=== PATIENT | male | born 1990 | race Caucasian/White ===

== ENCOUNTER 2016-09-17 14:38 | Inpatient (IN) ==
[2016-09-17] MEDS ORDERED: 0.9 % Sodium Chloride 1,000 ML IVC ONE (15:26)
[2016-09-17 16:15] LABS: Basophils % 0.9 %; Mean Corpuscular Hemoglobin 17.6 pg (28.0-33.3); Red Cell Distribution Width 16.2 % (11.5-14.5)
[2016-09-17 16:17] LABS: Basophils # 0.1 K/mcL (0.0-0.2); Eosinophils # 0.1 K/mcL (0.0-0.6); Eosinophils % 1.2 %; Hematocrit 23.8 % (37.5-50.1); Immature Granulocytes % 0.8 % (0-4); Lymphocytes # 2.3 K/mcL (0.6-4.6); Lymphocytes % 30.8 %; Mean Corpuscular HGB Conc 27.3 g/dL (31.6-35.5); Mean Corpuscular Volume 64.5 fL (83.0-100.0); Mean Platelet Volume 12.4 fL (9.4-12.4); Monocytes # 1.1 K/mcL (0.0-1.3); Monocytes % 14.9 %; Platelet Count 419 K/mcL (140-400); Red Blood Count 3.69 M/mcL (4.19-5.50); Segmented Neutrophils % 51.4 %
[2016-09-17 16:19] LABS: Bilirubin,Urine Negative (Negative); Blood,Urine Negative (Negative); Clarity,Urine Clear (Clear); Color,Urine Yellow (Yellow); Glucose,Urine (UA) Normal (Normal); Ketones,Urine Negative (Negative); Leukocyte Esterase,Urine Negative (Negative); Nitrite,Urine Negative (Negative); Protein,Urine Negative (Neg-Trace); Specific Gravity,Urine 1.016 (1.010-1.025); Urobilinogen,Urine Normal (Normal)
[2016-09-17 16:30] LABS: Alanine Aminotransferase 9 Units/L (0-55); Albumin 4.1 g/dL (3.5-5.0); Albumin/Globulin Ratio 0.9 (1.1-2.2); Alkaline Phosphatase 69 Units/L (38-126); Aspartate Amino Transferase 15 Units/L (5-34); BUN/Creatinine Ratio 17 (6-26); Bilirubin,Total 0.4 mg/dL (0.2-1.2); Blood Urea Nitrogen 15 mg/dL (8-26); Calcium 9.6 mg/dL (8.6-10.8); Carbon Dioxide 25 mEq/L (19-29); Chloride 103 mEq/L (98-109); Globulin 4.4 g/dL (2.4-3.5); Glucose 96 mg/dL (70-99); Osmolality,Calculated 285 (280-300); Potassium 3.6 mEq/L (3.5-4.5); Sodium 137 mEq/L (136-145); Total Protein 8.5 g/dL (6.0-8.3); eGFR For African Americans > 60 (> 60); eGFR For Non-African Americans > 60 (> 60)
[2016-09-17 16:42] LABS: Hemoglobin 6.5 g/dL (12.9-16.9); Neutrophils # 3.9 K/mcL (1.6-8.9)
[2016-09-17 16:49] LABS: Anisocytosis 1+ (Not Present); Hypochromasia Present (Not Present)
[2016-09-17 16:50] LABS: Platelet Estimate Normal (Normal); Poikilocytosis 1+ (Not Present)
--- NOTE | 2016-09-17 17:12 | Emergency Department Note ---
Disposition Clinical Impression: Symptomatic anemia GI bleed Qualifiers: GI bleed type/associated pathology: unspecified gastrointestinal hemorrhage type Qualified Code(s): K92.2 - Gastrointestinal hemorrhage, unspecified Disposition: Admitted As Inpatient Condition: Good General Adult HPI - General Chief complaint: ED Weakness Stated complaint: weakness Time Seen by Provider: 09/17/16 15:16 Source: patient Limitations: no limitations Nursing Notes Reviewed: Yes Vital Signs Reviewed: Yes - History of Present Illness HPI Narrative: Patient has a history of celiac disease. Patient went to urgent care for evaluation of fatigue and occasional difficulty swallowing. Patient states that the difficulty swallowing is intermittent and is not currently having. Overall he looks very pale and is mildly tachycardic. He states that he has not had any melanotic or bloody bowel movements. The patient eats whatever he wants despite his celiac. She used to get severe constipation with eating foods containing gluten however he is not currently experiencing these and has been enjoying a regular diet. Patient states that he just cannot get out and do the things that he would usually do. Did not tolerate activities he is normally capable of tolerating. Pain Scale: 0 - Related Data Home Medications Medication Instructions Recorded Confirmed No Known Home Drugs 09/17/16 09/17/16 Allergies Allergy/AdvReac Type Severity Reaction Status Date / Time No Known Allergies Allergy Verified 09/17/16 14:43 Review of Systems: CONSTITUTIONAL: Weakness and fatigue HEENT: Eyes: No visual changes. Ears, Nose, Throat: No hearing loss, difficulty talking or unable to swallow. SKIN: No rash or itching. CARDIOVASCULAR: No chest pain, chest pressure or chest discomfort. No palpitations or edema. RESPIRATORY: Decreased exertional capacity GASTROINTESTINAL: No anorexia, nausea, vomiting or diarrhea. No abdominal pain or blood. GENITOURINARY: No burning on urination or hematuria. NEUROLOGICAL: No headache, dizziness, syncope, paralysis, ataxia, numbness or tingling in the extremities. No change in bowel or bladder control. MUSCULOSKELETAL: No muscle pain, back pain, joint pain or stiffness. Past Medical History - Past Medical History Medical history: Reports: other Psychiatric history: Reports: no psych history - Social History Smoking Status: Never smoker Smokeless Tobacco Status: No Alcohol use: Reports: none Drug use: Reports: none Physical Exam General appearance: NAD, conversant Eyes: Pale conjunctiva HENT: Atraumatic; oropharynx clear with moist mucous membranes and no mucosal ulcerations Neck: Normal inspection; Trachea midline; FROM, supple Lungs: CTA, with normal respiratory effort and no intercostal retractions CV: RRR, no MRGs Abdomen: Soft, non-tender; no rebound or gaurding Stool guaiac positive Extremities: No peripheral edema or extremity lymphadenopathy Skin: Normal temperature; no rash, ulcers or lesions Psych: Appropriate mood and affect Neuro: alert and oriented to person, place and time - General Limitations: no limitations General appearance: alert, in no apparent distress Course - Consultations Consultation #1: Discussed with hospitalist. Patient with hemoglobin less than 7. Guaiac positive stool. No abdominal pain. Patient accepted for admission Vital Signs Temperature 98.6 F 09/17/16 14:39 Pulse Rate 117 09/17/16 14:39 Respiratory Rate 16 09/17/16 14:39 Blood Pressure 121/72 09/17/16 14:39 O2 Sat by Pulse Oximetry 100 09/17/16 14:39 Temperature 99.6 F 09/17/16 18:49 Pulse Rate 112 09/17/16 18:49 Respiratory Rate 16 09/17/16 18:49 Blood Pressure 116/59 09/17/16 18:49 O2 Sat by Pulse Oximetry 100 09/17/16 18:49 Oxygen Delivery Oxygen Delivery Room Air Medical Decision Making - Lab Data Result diagrams: 09/17/16 15:52 09/17/16 15:52 Lab Results 09/17/16 09/17/16 09/17/16 Range/Units 15:52 15:52 15:52 WBC 7.5 (4.3-11.1) K/mcL RBC 3.69 L (4.19-5.50) M/mcL Hgb 6.5 L (12.9-16.9) g/dL Hct 23.8 L (37.5-50.1) % MCV 64.5 L (83.0-100.0) fL MCH 17.6 L (28.0-33.3) pg MCHC 27.3 L (31.6-35.5) g/dL RDW 16.2 H (11.5-14.5) % Plt Count 419 H (140-400) K/mcL MPV 12.4 (9.4-12.4) fL Reticulocyte # (0.05-0.10) M/mcL Immature Gran % 0.8 (0-4) % Seg Neutrophils % 51.4 % Lymphocytes % 30.8 % Monocytes % 14.9 % Eosinophils % 1.2 % Basophils % 0.9 % Neutrophils # 3.9 (1.6-8.9) K/mcL Lymphocytes # 2.3 (0.6-4.6) K/mcL Monocytes # 1.1 (0.0-1.3) K/mcL Eosinophils # 0.1 (0.0-0.6) K/mcL Basophils # 0.1 (0.0-0.2) K/mcL Platelet Estimate Normal (Normal) Hypochromasia Present A (Not Present) Poikilocytosis 1+ A (Not Present) Anisocytosis 1+ A (Not Present) Percent Retic (1.6-2.8) % Immature Retic Fraction (11.0-38.0) % Retic Hgb Equivalent (28.61-36.33) pg Sodium 137 (136-145) mEq/L Potassium 3.6 (3.5-4.5) mEq/L Chloride 103 (98-109) mEq/L Carbon Dioxide 25 (19-29) mEq/L BUN 15 (8-26) mg/dL Creatinine 0.87 (0.72-1.25) mg/dL Est GFR ( Amer) > 60 (> 60) Est GFR (Non-Af Amer) > 60 (> 60) BUN/Creatinine Ratio 17 (6-26) Glucose 96 (70-99) mg/dL Calculated Osmolality 285 (280-300) Calcium 9.6 (8.6-10.8) mg/dL Iron 9 L (65-175) mcg/dL Ferritin 4 L (22-275) ng/ml Total Bilirubin 0.4 (0.2-1.2) mg/dL AST 15 (5-34) Units/L ALT 9 (0-55) Units/L Alkaline Phosphatase 69 (38-126) Units/L Lactate Dehydrogenase (159-327) Units/L Troponin I 0.00 (0-0.03) ng/mL Serum Total Protein 8.5 H (6.0-8.3) g/dL Albumin 4.1 (3.5-5.0) g/dL Globulin 4.4 H (2.4-3.5) g/dL Albumin/Globulin Ratio 0.9 L (1.1-2.2) Vitamin B12 (213-816) pg/mL Folate (7.0-31.4) ng/mL Urine Color (Yellow) Urine Clarity (Clear) Urine pH (5.0-8.0) pH Units Ur Specific [place] (1.010-1.025) Urine Protein (Neg-Trace) mg/dL Urine Glucose (UA) (Normal) mg/dL Urine Ketones (Negative) mg/dL Urine Blood (Negative) Urine Nitrite (Negative) Urine Bilirubin (Negative) Urine Urobilinogen (Normal) mg/dL Ur Leukocyte Esterase (Negative) Ur Culture Indicated? (NO) Blood Type Antibody Screen CYRIL, Poly Interpret Crossmatch 09/17/16 09/17/16 09/17/16 Range/Units 15:52 15:52 15:52 WBC (4.3-11.1) K/mcL RBC (4.19-5.50) M/mcL Hgb (12.9-16.9) g/dL Hct (37.5-50.1) % MCV (83.0-100.0) fL MCH (28.0-33.3) pg MCHC (31.6-35.5) g/dL RDW (11.5-14.5) % Plt Count (140-400) K/mcL MPV (9.4-12.4) fL Reticulocyte # 0.05 (0.05-0.10) M/mcL Immature Gran % (0-4) % Seg Neutrophils % % Lymphocytes % % Monocytes % % Eosinophils % % Basophils % % Neutrophils # (1.6-8.9) K/mcL Lymphocytes # (0.6-4.6) K/mcL Monocytes # (0.0-1.3) K/mcL Eosinophils # (0.0-0.6) K/mcL Basophils # (0.0-0.2) K/mcL Platelet Estimate (Normal) Hypochromasia (Not Present) Poikilocytosis (Not Present) Anisocytosis (Not Present) Percent Retic 1.4 L (1.6-2.8) % Immature Retic Fraction 16.8 (11.0-38.0) % Retic Hgb Equivalent 14.5 L (28.61-36.33) pg Sodium (136-145) mEq/L Potassium (3.5-4.5) mEq/L Chloride (98-109) mEq/L Carbon Dioxide (19-29) mEq/L BUN (8-26) mg/dL Creatinine (0.72-1.25) mg/dL Est GFR ( Amer) (> 60) Est GFR (Non-Af Amer) (> 60) BUN/Creatinine Ratio (6-26) Glucose (70-99) mg/dL Calculated Osmolality (280-300) Calcium (8.6-10.8) mg/dL Iron (65-175) mcg/dL Ferritin (22-275) ng/ml Total Bilirubin (0.2-1.2) mg/dL AST (5-34) Units/L ALT (0-55) Units/L Alkaline Phosphatase (38-126) Units/L Lactate Dehydrogenase 408 H (159-327) Units/L Troponin I (0-0.03) ng/mL Serum Total Protein (6.0-8.3) g/dL Albumin (3.5-5.0) g/dL Globulin (2.4-3.5) g/dL Albumin/Globulin Ratio (1.1-2.2) Vitamin B12 496 (213-816) pg/mL Folate 5.7 L (7.0-31.4) ng/mL Urine Color (Yellow) Urine Clarity (Clear) Urine pH (5.0-8.0) pH Units Ur Specific [place] (1.010-1.025) Urine Protein (Neg-Trace) mg/dL Urine Glucose (UA) (Normal) mg/dL Urine Ketones (Negative) mg/dL Urine Blood (Negative) Urine Nitrite (Negative) Urine Bilirubin (Negative) Urine Urobilinogen (Normal) mg/dL Ur Leukocyte Esterase (Negative) Ur Culture Indicated? (NO) Blood Type Antibody Screen CYRIL, Poly Interpret Crossmatch 09/17/16 09/17/16 09/17/16 Range/Units 15:56 17:24 17:24 WBC (4.3-11.1) K/mcL RBC (4.19-5.50) M/mcL Hgb (12.9-16.9) g/dL Hct (37.5-50.1) % MCV (83.0-100.0) fL MCH (28.0-33.3) pg MCHC (31.6-35.5) g/dL RDW (11.5-14.5) % Plt Count (140-400) K/mcL MPV (9.4-12.4) fL Reticulocyte # (0.05-0.10) M/mcL Immature Gran % (0-4) % Seg Neutrophils % % Lymphocytes % % Monocytes % % Eosinophils % % Basophils % % Neutrophils # (1.6-8.9) K/mcL Lymphocytes # (0.6-4.6) K/mcL Monocytes # (0.0-1.3) K/mcL Eosinophils # (0.0-0.6) K/mcL Basophils # (0.0-0.2) K/mcL Platelet Estimate (Normal) Hypochromasia (Not Present) Poikilocytosis (Not Present) Anisocytosis (Not Present) Percent Retic (1.6-2.8) % Immature Retic Fraction (11.0-38.0) % Retic Hgb Equivalent (28.61-36.33) pg Sodium (136-145) mEq/L Potassium (3.5-4.5) mEq/L Chloride (98-109) mEq/L Carbon Dioxide (19-29) mEq/L BUN (8-26) mg/dL Creatinine (0.72-1.25) mg/dL Est GFR ( Amer) (> 60) Est GFR (Non-Af Amer) (> 60) BUN/Creatinine Ratio (6-26) Glucose (70-99) mg/dL Calculated Osmolality (280-300) Calcium (8.6-10.8) mg/dL Iron (65-175) mcg/dL Ferritin (22-275) ng/ml Total Bilirubin (0.2-1.2) mg/dL AST (5-34) Units/L ALT (0-55) Units/L Alkaline Phosphatase (38-126) Units/L Lactate Dehydrogenase (159-327) Units/L Troponin I (0-0.03) ng/mL Serum Total Protein (6.0-8.3) g/dL Albumin (3.5-5.0) g/dL Globulin (2.4-3.5) g/dL Albumin/Globulin Ratio (1.1-2.2) Vitamin B12 (213-816) pg/mL Folate (7.0-31.4) ng/mL Urine Color Yellow (Yellow) Urine Clarity Clear (Clear) Urine pH 6.0 (5.0-8.0) pH Units Ur Specific [place] 1.016 (1.010-1.025) Urine Protein Negative (Neg-Trace) mg/dL Urine Glucose (UA) Normal (Normal) mg/dL Urine Ketones Negative (Negative) mg/dL Urine Blood Negative (Negative) Urine Nitrite Negative (Negative) Urine Bilirubin Negative (Negative) Urine Urobilinogen Normal (Normal) mg/dL Ur Leukocyte Esterase Negative (Negative) Ur Culture Indicated? NO (NO) Blood Type A POSITIVE Antibody Screen NEGATIVE CYRIL, Poly Interpret NEG Crossmatch See Detail Attestation Statement - Attestation Attestation: I, Ozzie Osei, examined this patient and my medical decision-making was reviewed with the E LEARNING MANAGER/PA/Advanced Practice Nurse/Resident Physician. I agree with the documented findings, disposition and treatment plan as described except to the extent set forth below. 26 yo male presents with weakness and fatigue. Pt states he has had difficulty swallowing food and fluids but is still tolerating PO intake. Tolerating saliva in ED, drinking fluid prior to arrival. Pt has history of poorly controlled celiac disease. Pt is pale on exam. Denies abdominal pain. Denies hematochezia or melena. Pt hemoglobin 6.5, Rectal exam grossly bloody on exam. Abdomen nontender to palpation. Pt to be admitted for blood transfusion and likely colonoscopy.
[2016-09-17] MEDS ORDERED: Acetaminophen 325 MG TABLET PO PRN (19:42)
--- NOTE | 2016-09-17 19:47 | Internal Med History&Physical ---
Date of Encounter: 09/17/16 Time of Encounter: 19:15 Assessment and Plan (1) Symptomatic anemia Current visit: Yes Status: Acute - Microcytic hypochromic anemia with Hgb 6.5 and symptoms including generalized weakness, paleness and tachycardia. - Likely iron deficiency anemia for unclear duration (last Hgb 12.1 on 09/26/15) , which can be acute (from GI bleed) vs. chronic (malabsorption associated with celiac disease) - Also concern of Sosa Matthew syndrome given reported dysphagia. - Will check iron panel, ferritin, LDH, reticulocyte count, direct demetri, vitamin B12, foliac acid, PT/INR, PTT. - Will type and cross and give one unit of pRBC. - Closely monitor with H&H. (2) GI bleed Current visit: Yes Status: Acute - Concern of acute blood loss anemia with Hgb 6.5 and positive stool occult test. - Patient needs at least two 18-gauge+ IV access. - Will start IV PPI BID. - Will consult GI and appreciate further evaluation with possible scope. - NPO for now. Qualifiers: GI bleed type/associated pathology: unspecified gastrointestinal hemorrhage type Qualified Code(s): K92.2 - Gastrointestinal hemorrhage, unspecified (3) Dysphagia Current visit: Yes Status: Acute - One week and half history of intermittent dysphagia to solid food. - Concern of Sosa Matthew syndrome given likely iron deficiency anemia. - Will consult GI and appreciate further evaluation with possible scope. - NPO for now. Qualifiers: Dysphagia type: unspecified Qualified Code(s): R13.10 - Dysphagia, unspecified (4) History of celiac disease Current visit: Yes Status: Chronic - Known history of celiac disease. - Per patient, that seems to improve from the past as he can tolerate regular diet prior to admission. (5) DVT prophylaxis Current visit: Yes Status: Acute - Given concern of GI bleed, will use calf pump as mechanical DVT prophylaxis. Internal Medicine - H&P: HPI Chief complaint: Generalized weakness Admitted From: Emergency Dept Plans for Post Hospital Care: Home History of present illness: Mr. Torres is a 26 year old male with PMH of celiac disease. Patient presented with complaint of generalized weakness and intermittent dysphagia for one week and half. The dysphagia is most for solid food as he has no problem to drink. Other associated symptom include pale and 6-lb weigh loss. Patient never had these symptoms before. Patient reports normal bowel movement with loosen brown stool 2-3 times per week and no hematochezia or melena. Patient denies nausea, vomiting, acid reflex, heartburn, abdominal pain, chest pain, shortnes of breath , lightheadedness, syncope, fever, chills, easily bleeding/bruise, hematuria, dysuria. Patient denies recent trauma or injury. Patient is not on any home medication except occasional OTC Tylenol use. Patient denies NSAIDs or steroid use. Patient states he used to have problem with gluten but not anymore as he can take regular diet without significant problem. Past Med Surg Social Fam HX - Past Medical History Medical history: other (Celiac disease) Psychiatric history: no psych history - Past Surgical History Surgical History: cholecystectomy - Social History Smoking Status: Never smoker Smokeless Tobacco Status: No Alcohol use: none Drug use: none - Family History Grandfather Hx Family Endocrine Disorder: Yes (DM) Internal Medicine - H&P: Meds No Known Home Drugs 09/17/16 [History] Allergies No Known Allergies Allergy (Verified 09/17/16 14:43) All Systems PM: A 10-system review of systems was performed and is negative for pertinent findings except as documented above in the HPI. - Constitutional Constitutional: weight loss, no anorexia, no chills, no fever(s) - EENT Eyes: no change in vision Ears: no decreased hearing Nose, mouth and throat: dysphagia - Cardiovascular Cardiovascular ROS IM: no chest pain, no edema, no lightheadedness, no syncope - Respiratory Respiratory: no cough, no dyspnea, no hemoptysis - Gastrointestinal Gastrointestinal: as per HPI, no abdominal pain, no constipation, no hematochezia, no melena, no nausea, no vomiting - Genitourinary Genitourinary ROS male: no difficulty urinating, no dysuria, no hematuria - Hematologic/Lymphatic Hematologic/Lymphatic: no easy bleeding, no easy bruising - Constitutional Vitals: Temp Pulse Resp BP Pulse Ox 99.6 F 112 16 116/59 100 09/17/16 18:49 09/17/16 18:49 09/17/16 18:49 09/17/16 18:49 09/17/16 18:49 General appearance: Present: cooperative, A&O X 3, no acute distress, answers questions appropriately - Head Head exam: Present: atraumatic, normocephalic - Eye Eye exam: Present: EOMI, PERRL, conjuntiva pink, sclera anicteric - Neck Neck exam general surgery: Present: supple, trachea midline. Absent: lymphadenopathy - Respiratory Respiratory exam: Present: CTAB. Absent: accessory muscle use, rales, rhonchi, wheezes - Cardiovascular Cardiovascular exam: Present: +S1, +S2, tachycardia. Absent: diastolic murmur, gallop, rubs, systolic murmur - GI/Abdominal GI/Abdominal exam: Present: normal bowel sounds, soft, no peritoneal signs. Absent: distended, tenderness - Extremities Exam Extremities exam: Present: warm, radial pulses palpable and symetrical. Absent : calf tenderness, cyanotic, pedal edema - Neurological Exam Neurological exam: Present: CN II-XII intact, oriented X3, no focal deficits. Absent: pronater drift, facial droop, speech deficit - Skin Skin exam: Present: dry, intact, warm Internal Med - H&P Results - Labs CBC & Chem 7: 09/17/16 15:52 09/17/16 15:52
[2016-09-17 20:13] LABS: Iron 9 mcg/dL (65-175)
[2016-09-17 20:34] LABS: Ferritin 4 ng/ml (22-275)
[2016-09-17 20:35] LABS: Immature Reticulocyte % 16.8 % (11.0-38.0); Retculocyte # 0.05 M/mcL (0.05-0.10); Reticulocyte % 1.4 % (1.6-2.8)
[2016-09-17] MEDS ORDERED: 0.9 % Sodium Chloride 250 ML ONE (20:36)
[2016-09-17 20:47] LABS: % Iron Saturation 3 % (20-55); Iron 10 mcg/dL (65-175); Transferrin 271 mg/dL (174-364)
[2016-09-17 20:50] LABS: Folate 5.7 ng/mL (7.0-31.4)
[2016-09-17] MEDS: Pantoprazole 40 MG VIAL IVP SCH (20:54)
[2016-09-17 21:03] LABS: INR 1.4
[2016-09-17 21:06] LABS: Activated Partial Thrombo Time 25.9 Seconds (26.0-36.0)
[2016-09-17 21:07] LABS: Ferritin 4 ng/ml (22-275)
--- NOTE | 2016-09-17 21:39 | Event Note ---
Date of Encounter: 09/17/16 Time of Encounter: 21:35 Patient seen and examined with medical affairs manager. Briefly 26-year-old male presents with symptomatic anemia. Patient has history of celiac disease. He has micro Cytic hypo chronic anemia with elevated RDW suggestive of iron deficiency anemia which can be explained by celiac disease. He has also been complaining of dysphagia which may be related to Sosa Matthew syndrome in relation to his iron deficiency anemia. Will check iron studies and transfuse one unit of blood because of symptomatic anemia. He denies any hematemesis, melena or hematochezia. No nonsteroidal anti-inflammatory drug use. No antiplatelet or anticoagulant medications. Will also consult gastroenterology for EGD colonoscopy and start an IV photonics for now.
[2016-09-18 01:26] LABS: Hematocrit 22.8 % (37.5-50.1); Hemoglobin 6.6 g/dL (12.9-16.9)
[2016-09-18] MEDS ORDERED: 0.9 % Sodium Chloride 250 ML ONE (04:12)
[2016-09-18] MEDS: Pantoprazole 40 MG VIAL IVP SCH ×2 (07:27→19:50)
[2016-09-18 09:13] LABS: Hematocrit 28.2 % (37.5-50.1); Hemoglobin 8.4 g/dL (12.9-16.9); Mean Corpuscular HGB Conc 29.8 g/dL (31.6-35.5); Mean Corpuscular Hemoglobin 20.3 pg (28.0-33.3); Mean Corpuscular Volume 68.3 fL (83.0-100.0); Mean Platelet Volume 12.5 fL (9.4-12.4); Platelet Count 363 K/mcL (140-400); Red Blood Count 4.13 M/mcL (4.19-5.50); Red Cell Distribution Width 19.7 % (11.5-14.5)
--- NOTE | 2016-09-18 11:19 | Internal Med Progress Note ---
<Howard Taylor - Last Filed: 09/18/16 13:07> Date of Encounter: 09/18/16 Time of Encounter: 11:11 - Assessment and plan (1) Symptomatic anemia Current Visit: Yes Status: Acute Assessment and plan: hgb 6.6 today after receiving 2 units of PRBC yesterday. on admission hgb 6.5. MCV 64.5, MCV/RBC 17.48, Fe 10, Ferritin 4. Fe deficiency microcytic anemia secondary most likely due to GI pathology. dysphagia possible due to regan libia secondary to fe deficiency anemia. - Started on IV Iron Dextran 100mg/day for 10 days + test dose. - GI consulted. (2) GI bleed Current Visit: Yes Status: Acute Assessment and plan: GI bleed vs celiac vs UC/Crohns. Positive stool occult, and current anemia. Previous hx of celiac. - GI consult ordered for evaluation. - continue IV PPI. Qualifiers: GI bleed type/associated pathology: unspecified gastrointestinal hemorrhage type Qualified Code(s): K92.2 - Gastrointestinal hemorrhage, unspecified (3) History of celiac disease Current Visit: Yes Status: Chronic Assessment and plan: has never had a scope but patient reports positive blood test a the age of 13. per patient normal diet is now tolerable. GI following. (4) Dysphagia Current Visit: Yes Status: Acute Assessment and plan: possible regan libia syndrome secondary to iron deficiency anemia - continue NPO Qualifiers: Dysphagia type: unspecified Qualified Code(s): R13.10 - Dysphagia, unspecified (5) DVT prophylaxis Current Visit: Yes Status: Acute Assessment and plan: due to GI bleed concerns. continue mechanical DVT prophylaxis. - Subjective Interval history: 26 yo m admit day 1. hospitalized due to 1.5 weeks of general weakness and intermittent dsphagia with unclear history of celiac disease. Ass. parents mention that patient has been pale recently, and 6 lb weight loss during the last 1.5 weeks. denies n/v/acidreflux/abd pain/CP/sob/lightheadness/f/c/ hematuria/dysuria/pica/hematochezia/melena/hematemesis. parents report pt has had rotting teeth since his baby teeth. today he has no new complaints. - Constitutional Vitals: Temp Pulse Resp BP Pulse Ox 98.3 F 98 16 104/68 99 08/08/17 07:07 09/18/16 07:07 09/18/16 07:07 09/18/16 07:07 09/18/16 07:34 General appearance: Present: cooperative, A&O X 3, no acute distress, answers questions appropriately - Head Head exam: Present: atraumatic, normocephalic Additional comments: very poor dentation. left side of face near cheek bone has two rashes - Respiratory Respiratory exam: Present: CTAB. Absent: accessory muscle use, rales, rhonchi, wheezes - Cardiovascular Cardiovascular exam: Present: RRR, +S1, +S2. Absent: diastolic murmur, gallop, rubs, systolic murmur - Expanded Lower Extremities Exam Lower Leg exam: Present: laceration (right anterior lower leg - 3 abrasions.) - Neurological Exam Neurological exam: Present: alert, oriented X3 Internal Medicine: Result - Labs CBC & Chem 7: 09/18/16 08:41 09/17/16 15:52 Labs: Short CBC 09/18/16 Range/Units 08:41 WBC 6.3 (4.3-11.1) K/mcL Hgb 8.4 L D (12.9-16.9) g/dL Hct 28.2 L (37.5-50.1) % Plt Count 363 (140-400) K/mcL - ABG Interpretation ABG results: PT/INR, D-dimer PT 15.0 Seconds (9.4-12.1) H 09/17/16 20:14 Consult Discharge Plan - Plan Referrals: NONE,PCP [Primary Care Provider] - <Ajit Negro T - Last Filed: 09/18/16 16:00> Date of Encounter: 09/18/16 - Constitutional Vitals: Temp Pulse Resp BP Pulse Ox 98.9 F 87 16 104/68 97 09/18/16 11:27 09/18/16 11:27 09/18/16 11:27 09/18/16 11:27 09/18/16 11:27 Internal Medicine: Result - Labs CBC & Chem 7: 09/18/16 14:20 09/17/16 15:52 Labs: Short CBC 09/18/16 09/18/16 Range/Units 08:41 14:20 WBC 6.3 (4.3-11.1) K/mcL Hgb 8.4 L D 8.1 L (12.9-16.9) g/dL Hct 28.2 L 27.4 L (37.5-50.1) % Plt Count 363 (140-400) K/mcL - ABG Interpretation ABG results: PT/INR, D-dimer PT 15.0 Seconds (9.4-12.1) H 09/17/16 20:14 - Attending Attestation I examined this patient and my medical decision-making was reviewed with the Resident Physician on 09/18/16. I agree with the documented findings, disposition and treatment plan as described except to the extent set forth below. 26 M with Celiac disease, chronic gingivitis, Iron deficicney anemia being managed for acute on chronic anemia, suspected GI loss, dysphagia, He is seen at bedside, no new complains Physical exam: Erythematous lesion on the whitten, poor oral hygeine, multiple lost teeth, CTAB, abdomen is not tender Labs and Imaging reviewed: Folate and Iron deficient Plan: GI eval, agree with Iron IV, Replace Folate, Check Vit D level, continue PPI Rest of details as in resident physician's documentation
[2016-09-18] MEDS: Iron Dextran Complex 100 MG in 0.9 % Sodium Chloride 500 ML IVPB SCH (11:23)
--- NOTE | 2016-09-18 12:04 | Gastroenterology Consult Note ---
<DevriesAyan alvarez Grecia - Last Filed: 09/18/16 12:01> Date of Encounter: 09/18/16 Time of Encounter: 11:00 - Assessment and plan (1) Dysphagia Current Visit: Yes Status: Acute Assessment and plan: Plan for EGD with possible dilation today to r/o structural causes such as stricture, tumor, etc vs esophageal motility disorder. Qualifiers: Dysphagia type: unspecified Qualified Code(s): R13.10 - Dysphagia, unspecified (2) Symptomatic anemia Current Visit: Yes Status: Acute Assessment and plan: No melena or hematochezia. Hgb 6.5 on admission. Continue to monitor CBC and transfuse PRBC as needed. Plan for EGD today to r/o esophagitis, gastritis, duodenitis, PUD, MW tear, or AVM. (3) GI bleed Current Visit: Yes Status: Acute Assessment and plan: No active GI bleeding noted as pt denies melena or hematochezia, but FOBT was positive. Qualifiers: GI bleed type/associated pathology: unspecified gastrointestinal hemorrhage type Qualified Code(s): K92.2 - Gastrointestinal hemorrhage, unspecified (4) History of celiac disease Current Visit: Yes Status: Chronic - Time Spent With Patient Total time spent is greater than 50% in coordination of care (as documented) at patient's floor/unit and/or counseling patient: GI History of Present Illness - Data of Consult Patient: new to practice Consult date: 09/18/16 Requesting Physician: Sukhwinder Plaza DO - Consult Narrative Reason for consult: hx Celiac Disease, anemia, dysphagia History of present illness: Mr. Torres is a 26 year old male with PMHx of Celiac disease who presented to the ED with c/o generalized weakness and intermittent dysphagia for 1-2 weeks. The dysphagia is with solid food, he has no problems with drinking. He is having normal BM, no melena or hematochezia. He denies fever, chills, chest pain , SOB, abdominal pain, nausea, vomiting, or hematemesis. On admission his Hgb was 6.5 with MCV 64.5, iron 10, ferritin 4, and FOBT was positive. Procedures: None NSAIDs: None Anticoagulation: None Past Med Surg Social Fam HX - Past Medical History Medical history: other Psychiatric history: no psych history - Past Surgical History Surgical History: cholecystectomy - Social History Smoking Status: Never smoker Smokeless Tobacco Status: No Alcohol use: none Drug use: none - Family History Grandfather Hx Family Endocrine Disorder: Yes (DM) - Gastrointestinal Gastrointestinal: Present: as per HPI - Constitutional Constitutional: as per HPI - EENT Eyes: as per HPI Ears: Present: as per HPI Nose, mouth and throat: Present: as per HPI - Cardiovascular Cardiovascular ROS: Present: as per HPI - Respiratory Respiratory IM: Present: as per HPI - Genitourinary Genitourinary: Absent: change in color, Urinary frequency - Neurological ROS Neurological GI: Present: as per HPI - Hematologic/Lymphatic Hematologic/Lymphatic pediatric: Present: as per HPI - Musculoskeletal Musculoskeletal ROS GI: Present: as per HPI - Integumentary Integumentary GI: Present: as per HPI - Psychiatric ROS Psychiatric GI: Present: as per HPI - Endocrine Endocrine IM: Present: as per HPI - Constitutional Vitals: Temp Pulse Resp BP Pulse Ox 98.9 F 87 16 104/68 97 09/18/16 11:27 09/18/16 11:27 09/18/16 11:27 09/18/16 11:27 09/18/16 11:27 General appearance: Present: cooperative, A&O X 3, no acute distress, answers questions appropriately - Head Head exam: Present: atraumatic, normocephalic - Eye Eye exam: Present: normal appearance, sclera anicteric - ENT ENT exam: Present: mucous membranes dry - Neck Neck exam general surgery: Present: normal inspection, trachea midline - Respiratory Respiratory exam: Present: CTAB. Absent: rales, rhonchi - Cardiovascular Cardiovascular exam: Present: RRR, +S1, +S2 - GI/Abdominal GI/Abdominal exam: Present: normal bowel sounds, soft, no peritoneal signs. Absent: distended, firm, guarding, tenderness - Rectal Rectal exam: Present: deferred - Extremities Exam Extremities exam: Present: warm - Neurological Exam Neurological exam: Present: no focal deficits - Psychiatric Psychiatric exam: Present: normal affect, normal mood - Skin Skin exam: Present: dry, intact, normal color, warm Results - Labs CBC & Chem 7: 09/18/16 08:41 09/17/16 15:52 Labs: Last Result Calcium 9.6 mg/dL (8.6-10.8) 09/17/16 15:52 Iron 10 mcg/dL (65-175) L 09/17/16 20:14 % Saturation 3 % (20-55) L 09/17/16 20:14 Transferrin 271 mg/dL (174-364) 09/17/16 20:14 Ferritin 4 ng/ml (22-275) L 09/17/16 20:14 Troponin I 0.00 ng/mL (0-0.03) 09/17/16 15:52 Vitamin B12 496 pg/mL (213-816) 09/17/16 15:52 Folate 5.7 ng/mL (7.0-31.4) L 09/17/16 15:52 Stool Occult Blood Positive (Negative) A 09/17/16 Unknown Entire Visit Hgb 8.4 g/dL (12.9-16.9) L D 09/18/16 08:41 Hct 28.2 % (37.5-50.1) L 09/18/16 08:41 PT 15.0 Seconds (9.4-12.1) H 09/17/16 20:14 Ferritin 4 ng/ml (22-275) L 09/17/16 20:14 Total Bilirubin 0.4 mg/dL (0.2-1.2) 09/17/16 15:52 AST 15 Units/L (5-34) 09/17/16 15:52 ALT 9 Units/L (0-55) 09/17/16 15:52 Folate 5.7 ng/mL (7.0-31.4) L 09/17/16 15:52 - ABG ABG results: PT/INR, D-dimer PT 15.0 Seconds (9.4-12.1) H 09/17/16 20:14 Consult Discharge Plan - Plan Referrals: NONE,PCP [Primary Care Provider] - <Naga Anderson - Last Filed: 09/18/16 17:33> Date of Encounter: 09/18/16 Time of Encounter: 17:00 - Time Spent With Patient Total time spent is greater than 50% in coordination of care (as documented) at patient's floor/unit and/or counseling patient: GI History of Present Illness - Data of Consult Requesting Physician: Sukhwinder Plaza DO - Consult Narrative History of present illness: Mr. Torres is a 26 year old male - Constitutional Vitals: Temp Pulse Resp BP Pulse Ox 99.7 F H 107 14 110/59 99 09/18/16 17:28 09/18/16 17:28 09/18/16 17:28 09/18/16 17:28 09/18/16 17:28 Results - Labs CBC & Chem 7: 09/18/16 14:20 09/17/16 15:52 Labs: Last Result Calcium 9.6 mg/dL (8.6-10.8) 09/17/16 15:52 Iron 10 mcg/dL (65-175) L 09/17/16 20:14 % Saturation 3 % (20-55) L 09/17/16 20:14 Transferrin 271 mg/dL (174-364) 09/17/16 20:14 Ferritin 4 ng/ml (22-275) L 09/17/16 20:14 Troponin I 0.00 ng/mL (0-0.03) 09/17/16 15:52 Vitamin B12 496 pg/mL (213-816) 09/17/16 15:52 Folate 5.7 ng/mL (7.0-31.4) L 09/17/16 15:52 Stool Occult Blood Positive (Negative) A 09/17/16 Unknown Entire Visit Hgb 8.1 g/dL (12.9-16.9) L 09/18/16 14:20 Hct 27.4 % (37.5-50.1) L 09/18/16 14:20 PT 15.0 Seconds (9.4-12.1) H 09/17/16 20:14 Ferritin 4 ng/ml (22-275) L 09/17/16 20:14 Total Bilirubin 0.4 mg/dL (0.2-1.2) 09/17/16 15:52 AST 15 Units/L (5-34) 09/17/16 15:52 ALT 9 Units/L (0-55) 09/17/16 15:52 Folate 5.7 ng/mL (7.0-31.4) L 09/17/16 15:52 - ABG ABG results: PT/INR, D-dimer PT 15.0 Seconds (9.4-12.1) H 09/17/16 20:14 - Attending Attestation I examined this patient and my medical decision-making was reviewed with the Resident Physician. I agree with the documented findings, disposition and treatment plan as described except to the extent set forth below. Patient with iron deficiency anemia most probably due to his underlying history of celiac disease. Denies any bloody bowel movement. Does has dysphagia. We will do an EGD for now. No need for colonoscopy at this point. Patient will need follow up on his iron panel along with CBC periodically and as needed IV iron therapy on as an outpatient basis
--- NOTE | 2016-09-18 12:35 | Electrocardiograph Report ---
[place] [id number] Test Date: 2016-09-17 Pat Name: Steve Torres Department: 104 Room: [facility] Gender: M [employer] Founder: : 1990 Requested By: Reyes Dwyer Order Number: [id number] Reading MD: Blanca Doan Measurements Intervals [place] Rate: 117 P: 74 W[place]: 140 QRS: 65 QRSD: 96 T: 57 QT: 326 QTc: 395 Interpretive Statements SINUS TACHYCARDIA ABNORMAL RHYTHM ECG Electronically Signed On 09-18-2016 12:33:49 EDT by Blanca Doan
[2016-09-18 14:38] LABS: Hematocrit 27.4 % (37.5-50.1); Hemoglobin 8.1 g/dL (12.9-16.9)
[2016-09-18] MEDS: 0.9 % Sodium Chloride 1,000 ML IVC SCH (14:55)
[2016-09-18] MEDS ORDERED: *HR* FentaNYL (PF) 100 MCG/2 ML VIAL ONE (16:40)
[2016-09-18] MEDS ORDERED: *HR* Midazolam HCl 5 MG/5 ML VIAL IVP ONE (16:40)
[2016-09-18] MEDS ORDERED: *HR* Promethazine 25 MG/ML VIAL ONE (16:41)
[2016-09-18] MEDS ORDERED: *HR* FentaNYL (PF) 100 MCG/2 ML VIAL IVP PRN (17:25)
[2016-09-18] MEDS ORDERED: Tetracaine/Benzocaine/Butamben 200MG/SPRAY (100SPY/BOT) MM ONE (17:25)
[2016-09-18] MEDS ORDERED: *HR* Midazolam HCl 5 MG/5 ML VIAL IVP PRN (17:25)
[2016-09-18 20:27] LABS: Hematocrit 32.1 % (37.5-50.1)
[2016-09-19] MEDS: 0.9 % Sodium Chloride 1,000 ML IVC SCH (03:36)
[2016-09-19 05:51] LABS: BUN/Creatinine Ratio 13 (6-26); Blood Urea Nitrogen 10 mg/dL (8-26); Calcium 8.5 mg/dL (8.6-10.8); Carbon Dioxide 23 mEq/L (19-29); Chloride 109 mEq/L (98-109); Glucose 93 mg/dL (70-99); Osmolality,Calculated 285 (280-300); Potassium 3.6 mEq/L (3.5-4.5); Sodium 138 mEq/L (136-145); eGFR For African Americans > 60 (> 60); eGFR For Non-African Americans > 60 (> 60)
[2016-09-19 05:59] LABS: Basophils # 0.1 K/mcL (0.0-0.2); Eosinophils # 0.1 K/mcL (0.0-0.6); Eosinophils % 1.8 %; Hematocrit 26.5 % (37.5-50.1); Hemoglobin 7.8 g/dL (12.9-16.9); Immature Granulocytes % 1.4 % (0-4); Immature Platelets 6.3 % (1.1-6.1); Mean Corpuscular HGB Conc 29.4 g/dL (31.6-35.5); Mean Corpuscular Volume 67.9 fL (83.0-100.0); Mean Platelet Volume 11.9 fL (9.4-12.4); Monocytes # 1.3 K/mcL (0.0-1.3); Monocytes % 17.5 %; Neutrophils # 3.7 K/mcL (1.6-8.9); Platelet Count 285 K/mcL (140-400); Red Cell Distribution Width 19.3 % (11.5-14.5); Segmented Neutrophils % 50.3 %
[2016-09-19 07:12] LABS: Anisocytosis 1+ (Not Present); Hypochromasia Present (Not Present); Microcytosis Present (Not Present); Poikilocytosis 1+ (Not Present)
[2016-09-19 07:13] LABS: Ovalocytes 1+ (Not Present); Platelet Estimate Normal (Normal); Tear Drop Cells 1+ (Not Present)
[2016-09-19] MEDS: Pantoprazole 40 MG VIAL IVP SCH (08:17)
[2016-09-19] MEDS: Iron Dextran Complex 100 MG in 0.9 % Sodium Chloride 500 ML IVPB SCH (08:17)
--- NOTE | 2016-09-19 09:25 | Internal Med Progress Note ---
<Howard Taylor - Last Filed: 09/19/16 13:43> Date of Encounter: 09/19/16 Time of Encounter: 09:19 - Assessment and plan (1) Symptomatic anemia Current Visit: Yes Status: Acute Assessment and plan: hgb 7.8 today after receiving 2 units of PRBC yesterday. on admission hgb 6.5. MCV 64.5, MCV/RBC 17.48, Fe 10, Ferritin 4. Fe deficiency microcytic anemia secondary most likely due to GI pathology. dysphagia possible due to regan libia secondary to fe deficiency anemia. - continue IV Iron Dextran 100mg/day for 10 days. - Duodenal biopsy results pending. - blood smear pending - heme consulted (2) GI bleed Current Visit: Yes Status: Acute Assessment and plan: GI bleed vs celiac vs UC/Crohns. Positive stool occult, and current anemia. Previous hx of celiac. - continue IV PPI. Qualifiers: GI bleed type/associated pathology: unspecified gastrointestinal hemorrhage type Qualified Code(s): K92.2 - Gastrointestinal hemorrhage, unspecified (3) History of celiac disease Current Visit: Yes Status: Chronic Assessment and plan: has never had a scope but patient reports positive blood test a the age of 13. per patient normal diet is now tolerable. GI following. continue PPI for now. (4) Dysphagia Current Visit: Yes Status: Acute Assessment and plan: possible regan libia syndrome secondary to iron deficiency anemia - no complaints of dysphagia since admission - continue NPO Qualifiers: Dysphagia type: unspecified Qualified Code(s): R13.10 - Dysphagia, unspecified (5) DVT prophylaxis Current Visit: Yes Status: Acute Assessment and plan: due to GI bleed concerns. continue mechanical DVT prophylaxis. - Subjective Interval history: 26 yo m admit day 2. hospitalized due to 1.5 weeks of general weakness and intermittent dsphagia with unclear history of celiac disease. Ass. parents mention that patient has been pale recently, and 6 lb weight loss during the last 1.5 weeks. denies n/v/acidreflux/abd pain/CP/sob/lightheadness/f/c/ hematuria/dysuria/pica/hematochezia/melena/hematemesis. parents report pt has had rotting teeth since his baby teeth. today he has no new complaints. he did not have issues with swallowing overnight. he did report having a more watery stool. denies nausea, vomiting, abdominal pain, f/c. - Constitutional Vitals: Temp Pulse Resp BP Pulse Ox 98.7 F 88 16 115/68 98 09/19/16 07:27 09/19/16 07:27 09/19/16 07:27 09/19/16 07:27 09/19/16 08:24 General appearance: Present: cooperative, A&O X 3, no acute distress, answers questions appropriately - Head Head exam: Present: atraumatic, normocephalic - Respiratory Respiratory exam: Present: CTAB. Absent: accessory muscle use, rales, rhonchi, wheezes - Cardiovascular Cardiovascular exam: Present: RRR, +S1, +S2. Absent: diastolic murmur, gallop, rubs, systolic murmur - GI/Abdominal GI/Abdominal exam: Present: normal bowel sounds, soft, no peritoneal signs. Absent: distended, tenderness Internal Medicine: Result - Labs CBC & Chem 7: 09/19/16 05:20 09/19/16 05:20 Labs: Short CBC 09/18/16 09/18/16 09/19/16 Range/Units 14:20 20:15 05:20 WBC 7.3 (4.3-11.1) K/mcL Hgb 8.1 L 9.0 L 7.8 L (12.9-16.9) g/dL Hct 27.4 L 32.1 L 26.5 L (37.5-50.1) % Plt Count 285 (140-400) K/mcL Neutrophils # 3.7 (1.6-8.9) K/mcL BMP 09/19/16 05:20 Sodium 138 Potassium 3.6 Chloride 109 Carbon Dioxide 23 BUN 10 Creatinine 0.79 Glucose 93 Calcium 8.5 L - ABG Interpretation ABG results: PT/INR, D-dimer PT 15.0 Seconds (9.4-12.1) H 09/17/16 20:14 Consult Discharge Plan - Plan Referrals: Mildred Dorantes, CEM [Advanced Practice Nurse] - 09/26/16 3:15 pm (Please follow up as schedule... [phone] Office number. Please arrive 15 minutes early , bring list of medications and insurance card..) <Ajit Negro T - Last Filed: 09/19/16 15:40> Date of Encounter: 09/19/16 - Constitutional Vitals: Temp Pulse Resp BP Pulse Ox 99.0 F 82 18 101/65 97 09/19/16 11:26 09/19/16 11:26 09/19/16 11:26 09/19/16 11:26 09/19/16 11:26 Internal Medicine: Result - Labs CBC & Chem 7: 09/19/16 14:07 09/19/16 05:20 Labs: Short CBC 09/18/16 09/19/16 09/19/16 Range/Units 20:15 05:20 14:07 WBC 7.3 6.9 (4.3-11.1) K/mcL Hgb 9.0 L 7.8 L 7.9 L (12.9-16.9) g/dL Hct 32.1 L 26.5 L 27.3 L (37.5-50.1) % Plt Count 285 308 (140-400) K/mcL Neutrophils # 3.7 (1.6-8.9) K/mcL BMP 09/19/16 05:20 Sodium 138 Potassium 3.6 Chloride 109 Carbon Dioxide 23 BUN 10 Creatinine 0.79 Glucose 93 Calcium 8.5 L - ABG Interpretation ABG results: PT/INR, D-dimer PT 15.0 Seconds (9.4-12.1) H 09/17/16 20:14 - Attending Attestation I examined this patient and my medical decision-making was reviewed with the Resident Physician on 09/19/16. I agree with the documented findings, disposition and treatment plan as described except to the extent set forth below. 26 M with Celiac disease, chronic gingivitis, Iron deficiency anemia He is admitted and being managed for acute on chronic anemia, suspected GI loss , dysphagia, He is seen at bedside, no new complains He is s/p EGD which showed Grade A esophagitis, diffuse duodenal mucosal flattening, biopsiies were taken and daily PPI was recommended Patient's Hb is 7.4 today, he has no hematochezia, melena, or hematemesis He is hemodynamically stable Physical exam: Erythematous lesion on the whitten, poor oral hygeine, multiple lost teeth, CTAB, abdomen is not tender Labs and Imaging reviewed: Folate and Iron deficient, Vit D level WNL, HB 7.8 Plan: GI bleed has been ruled out Anemia i possiby chronic R/O bone marrow suppression, Hematology eval , replace folate, continue iron, follow biopsy Set up iron infusion as out-patient Rest of details as in resident physician's documentation
[2016-09-19] MEDS ORDERED: Folic Acid 1 MG TABLET PO SCH (11:45)
[2016-09-19 14:35] LABS: Mean Corpuscular Volume 69.3 fL (83.0-100.0)
[2016-09-19 14:37] LABS: Hematocrit 27.3 % (37.5-50.1); Hemoglobin 7.9 g/dL (12.9-16.9); Immature Platelets 6.3 % (1.1-6.1); Mean Corpuscular HGB Conc 28.9 g/dL (31.6-35.5); Mean Corpuscular Hemoglobin 20.1 pg (28.0-33.3); Mean Platelet Volume 11.9 fL (9.4-12.4); Red Blood Count 3.94 M/mcL (4.19-5.50); Red Cell Distribution Width 19.6 % (11.5-14.5)
[2016-09-19 15:56] VITALS: BP 110/74
--- NOTE | 2016-09-19 17:18 | Oncology Inp Consult Note ---
Date of Encounter: 09/19/16 Time of Encounter: 17:00 Assessment and Plan (1) Symptomatic anemia Status: Acute Assessment and plan: Patient with iron deficiency anemia, lactose reviewed suggest ill-defined deficiency with reticulated hemoglobin 14 microcytosis anisocytosis and poikilocytosis. Patient has received transportation and hemoglobin is around 7.8 he denies any active bleeding. GI has been consulted, history of celiac disease, poor oral iron absorption, folic acid deficiency. We discussed intravenous iron replacement therapy patient would like to pursue this as an outpatient clinic appointments to be scheduled for follow-up visit and for intravenous iron infusion. Plan of care discussed with patient and his mother who stated understanding. - Data of Consult Requesting Physician: Ajit Negro MD Primary Care Provider: PCP NONE - Consult Narrative Reason for consult: anemia, iron def History of present illness: Mr. Torres is a 26 year old male with medical history significant for anemia, iron deficiency, dysphagia to solids, history of celiac disease, patient hospitalized with symptoms of dysphagia and weight loss and was noted to have a ferritin 7, hemoglobin around 6 patient denied any az bleeding or melena. He denies and 50 years or abdominal pain. Hgb back in 2016 was normal. He denied any dizziness or shortness of breath with exertion and feels quite well. 14 point review of systems is negative otherwise. Past Med Surg Social Fam HX - Past Medical History Medical history: other Psychiatric history: no psych history - Past Surgical History Surgical History: cholecystectomy - Social History Smoking Status: Never smoker Smokeless Tobacco Status: No Alcohol use: none Drug use: none - Family History Grandfather Hx Family Endocrine Disorder: Yes (DM) Medications and Allergies No Known Home Drugs 09/17/16 [History] Allergies gluten Allergy (Verified 09/18/16 04:29) Loss of Appetite milk Allergy (Verified 09/18/16 04:29) Diarrhea wheat Allergy (Verified 09/18/16 04:29) Diarrhea Review of systems: as in HPI Oncology - Exam - Constitutional Vitals: Temp Pulse Resp BP Pulse Ox 98.9 F 93 19 110/74 98 09/19/16 15:52 09/19/16 15:52 09/19/16 15:52 09/19/16 15:52 09/19/16 15:52 General appearance: thin - Head Head exam: Present: atraumatic, normal inspection - Eye Eye exam: Present: conjuntiva pink - ENT ENT exam: Present: mucous membranes moist - Neck Neck exam: Present: full ROM - Respiratory Respiratory exam: Present: CTAB - Cardiovascular Cardiovascular exam: Present: +S1, +S2 - GI/Abdominal GI/Abdominal exam: Present: normal bowel sounds, soft - Extremities Exam Extremities exam: Present: normal inspection - Neurological Exam Neurological exam: Present: alert, CN II-XII intact, oriented X3 - Psychiatric Psychiatric exam: Present: normal affect Oncology - Results - Labs Labs: Short CBC 09/18/16 09/19/16 09/19/16 Range/Units 20:15 05:20 14:07 WBC 7.3 6.9 (4.3-11.1) K/mcL Hgb 9.0 L 7.8 L 7.9 L (12.9-16.9) g/dL Hct 32.1 L 26.5 L 27.3 L (37.5-50.1) % Plt Count 285 308 (140-400) K/mcL Neutrophils # 3.7 (1.6-8.9) K/mcL BMP 09/19/16 05:20 Sodium 138 Potassium 3.6 Chloride 109 Carbon Dioxide 23 BUN 10 Creatinine 0.79 Glucose 93 Calcium 8.5 L Consult Discharge Plan - Plan Referrals: Mildred Dorantes, DOLL SURGEON [Advanced Practice Nurse] - 09/26/16 3:15 pm (Please follow up as schedule... [phone] Office number. Please arrive 15 minutes early , bring list of medications and insurance card..)
--- NOTE | 2016-09-19 17:31 | Discharge Summary ---
<Howard Taylor - Last Filed: 09/20/16 17:22> Date of Encounter: 09/20/16 Time of Encounter: 17:28 - Discharge Diagnosis (1) Symptomatic anemia Priority: Primary Status: Acute (2) GI bleed Priority: Secondary Status: Inactive Comments: suspected GI bleed on admission. no evidence of bleed found on EGD Qualifiers: GI bleed type/associated pathology: unspecified gastrointestinal hemorrhage type Qualified Code(s): K92.2 - Gastrointestinal hemorrhage, unspecified (3) History of celiac disease Priority: Secondary Status: Chronic (4) Dysphagia Priority: Secondary Status: Acute Qualifiers: Dysphagia type: unspecified Qualified Code(s): R13.10 - Dysphagia, unspecified (5) DVT prophylaxis Priority: Secondary Status: Acute - Discharge Medications Prescriptions: Folic Acid 1 mg PO DAILY #60 tab Home Medications: Folic Acid 1 mg PO DAILY #60 tab 09/19/16 [Rx] Allergies/Adverse Reactions: Allergies gluten Allergy (Verified 09/18/16 04:29) Loss of Appetite milk Allergy (Verified 09/18/16 04:29) Diarrhea wheat Allergy (Verified 09/18/16 04:29) Diarrhea Date of admission: 09/18/16 05:41 Primary care physician: PCP NONE Consults: 09/19/16 10:10 Consult to Oncology Hematology [CONS] Routine Consulting Provider: Sonia Phillip Reason for Consult: no identifiable source of bleed, and patient hgb not responding to iron and prbc. Call Completed: Yes - Patient Status Disposition: Home, Self-Care Condition: Good Functional capacity at discharge: independent ambulation Overall status at discharge: patient is progressing back to baseline - Discharge Instructions Instructions: Folic Acid (By mouth), Chronic Dysphagia (DC), Anemia (GEN) Follow Up With: Mildred Dorantes CNP [Advanced Practice Nurse] - 09/26/16 3:15 pm (Please follow up as schedule... [phone] Office number. Please arrive 15 minutes early , bring list of medications and insurance card..) Gabby Caldera MD [Partnered Physician] - Additional Instructions: Please follow up with Hematology to setup Iron infusions. [phone] Office number. Please arrive 15 minutes early, bring list of medications and insurance card. - Diet and Activity Activity: increase activity as tolerated, other (please follow up with hematology to setup iron infusions as outpatient) Diet: advance to your usual diet Hospital course: Mr. Torres is a 26 year old male who presented to the ED with complaint of generalized weakness and intermittent dysphagia for 1.5 weeks. He was given 2 units of PRBC after his hgb was found to be 6.6. On admission hgb 6.5, MCV 64.5 , MCV/RBC 17.48, Fe 10, Ferritin 4. It was determined that the patient was iron deficiency anemia. IV PPI was started prophylactically in case of a GI bleed. He was started on IV Iron Dextran 100 mg/day, and GI was consulted. EGD found no bleeding but flattened duodenum suspicious of Celiac disease, which he had previously been diagnosed with at the age of 13. Hgb went upto 9.0 on 09/18 and on day of discharge was 7.9. Due to hemetological concerns, Heme was consulted and blood smears ordered. Patient requested to continue Fe transfusions outpatient. - Time Spent with Patient Total time spent providing and/or coordinating discharge services: - Constitutional Vitals: Temp Pulse Resp BP Pulse Ox 98.9 F 93 19 110/74 98 09/19/16 15:52 09/19/16 15:52 09/19/16 15:52 09/19/16 15:52 09/19/16 15:52 General appearance: Present: cooperative, A&O X 3, no acute distress, answers questions appropriately - Head Head exam: Present: atraumatic (diffusely pale), normocephalic - Respiratory Respiratory exam: Present: CTAB. Absent: accessory muscle use, rales, rhonchi, wheezes - Cardiovascular Cardiovascular exam: Present: RRR, +S1, +S2. Absent: diastolic murmur, gallop, rubs, systolic murmur - GI/Abdominal GI/Abdominal exam: Present: normal bowel sounds, soft, no peritoneal signs. Absent: distended, tenderness Additional comments: patient had very poor dentation. - Neurological Exam Neurological exam: Present: alert, oriented X3 - Psychiatric Psychiatric exam: Present: flat affect, normal mood <Ajit Negro - Last Filed: 09/20/16 17:44> Date of Encounter: 09/20/16 Date of admission: 09/18/16 05:41 Primary care physician: PCP NONE Consults: 09/19/16 10:10 Consult to Oncology Hematology [CONS] Routine Consulting Provider: Sonia Phillip Reason for Consult: no identifiable source of bleed, and patient hgb not responding to iron and prbc. Call Completed: Yes Hospital course: Mr. Torres is a 26 year old male - Time Spent with Patient Total time spent providing and/or coordinating discharge services: - Constitutional Vitals: Temp Pulse Resp BP Pulse Ox 98.9 F 93 19 110/74 98 09/19/16 15:52 09/19/16 15:52 09/19/16 15:52 09/19/16 15:52 09/19/16 15:52 - Attending Attestation Seen and evaluated Agree with plan See progress note of 09/19 for more details
== END 2016-09-19 18:06 | disposition home or self-care (01) | DRG 663 ==
LOC: EMEROO 14:38 → 2ANU 14:38 → SUATTDRO 09-18 05:41
PROVIDERS: ADMIT Internal Medicine Endocrinology, Diabetes & Metabolism; ATTEND Internal Medicine
PROC: ENDOEBX (2016-09-18 15:00)

== ENCOUNTER 2020-07-07 16:18 | Observation (INO) ==
[2020-07-07 17:09] LABS: Basophils # 0.1 K/mcL (0.0-0.2); Basophils % 0.7 %; Eosinophils # 0.2 K/mcL (0.0-0.6); Eosinophils % 1.6 %; Hematocrit 35.7 % (37.5-50.1); Hemoglobin 10.6 g/dL (12.9-16.9); Immature Granulocytes % 0.5 % (0-4); Lymphocytes # 1.2 K/mcL (0.6-4.6); Mean Corpuscular HGB Conc 29.7 g/dL (31.6-35.5); Mean Corpuscular Hemoglobin 21.5 pg (28.0-33.3); Mean Corpuscular Volume 72.3 fL (83.0-100.0); Mean Platelet Volume 10.6 fL (9.4-12.4); Monocytes # 0.9 K/mcL (0.0-1.3); Monocytes % 8.5 %; Neutrophils # 8.3 K/mcL (1.6-8.9); Platelet Count 440 K/mcL (140-400); Red Blood Count 4.94 M/mcL (4.19-5.50); Red Cell Distribution Width 14.5 % (11.5-14.5); Segmented Neutrophils % 77.7 %; White Blood Count 10.6 K/mcL (4.3-11.1)
[2020-07-07 17:18] LABS: INR 1.5; Prothrombin Time 17.4 Seconds (9.4-12.1)
[2020-07-07 17:20] LABS: Activated Partial Thrombo Time 31.3 Seconds (26.0-36.0)
[2020-07-07 17:33] LABS: BUN/Creatinine Ratio 14 (6-26); Blood Urea Nitrogen 12 mg/dL (6-20); Calcium 9.3 mg/dL (8.6-10.3); Carbon Dioxide 28 mEq/L (23-29); Chloride 100 mEq/L (98-107); Glucose 117 mg/dL (70-105); Osmolality,Calculated 285 (280-300); Potassium 3.8 mEq/L (3.5-5.1); Sodium 137 mEq/L (136-145); Troponin I < 0.03 ng/mL (< 0.04); eGFR For African Americans > 60 (> 60); eGFR For Non-African Americans > 60 (> 60)
[2020-07-07] MEDS ORDERED: 0.9 % Sodium Chloride 1,000 ML IV ONE (17:55)
[2020-07-07] MEDS ORDERED: Isovue-370 500 ML BOTTLE IVP ONE (19:30)
[2020-07-07 20:15] LABS: Hematocrit 29.1 % (37.5-50.1); Mean Corpuscular HGB Conc 30.6 g/dL (31.6-35.5); Mean Corpuscular Hemoglobin 22.3 pg (28.0-33.3); Mean Corpuscular Volume 72.8 fL (83.0-100.0); Mean Platelet Volume 11.1 fL (9.4-12.4); Platelet Count 345 K/mcL (140-400); Red Cell Distribution Width 14.4 % (11.5-14.5)
[2020-07-07 20:16] LABS: Hemoglobin 8.9 g/dL (12.9-16.9)
[2020-07-07] MEDS ORDERED: MetroNIDAZOLE 500 MG/100 ML 500 MG/100 ML BAG IVPB ONE (21:17)
[2020-07-07] MEDS ORDERED: Acetaminophen 325 MG TABLET PO PRN (21:53)
[2020-07-07] MEDS ORDERED: Naloxone 0.4 MG/ML INJ IVP PRN ×2 (21:53→23:34)
[2020-07-07] MEDS ORDERED: Ondansetron 4 MG/2 ML VIAL IVP PRN (21:53)
[2020-07-07] MEDS ORDERED: Melatonin 3 MG TABLET PO PRN (21:53)
[2020-07-07] MEDS ORDERED: *HR* Promethazine 25 MG/ML VIAL IM PRN (21:53)
[2020-07-07] MEDS ORDERED: SODIUM CHLORIDE/NAHCO3/KCL/PEG 4,000 ML SOLN.RECON PO ONE (22:20)
[2020-07-07 23:33] LABS: Chlamydia Trachomatis DNA Ur NOT DETECTED (Not Detect)
[2020-07-08] MEDS ORDERED: Piperacillin/Tazobactam 3.375 GM in 0.9 % Sodium Chloride Mini Bag 100 ML IVPB SCH
[2020-07-08] MEDS ORDERED: Iron Sucrose Complex 400 MG in 0.9 % Sodium Chloride 250 ML IVPB ONE
[2020-07-08] MEDS: Piperacillin/Tazobactam 3.375 GM in 0.9 % Sodium Chloride Mini Bag 100 ML IVPB SCH ×2 (03:12→11:16)
[2020-07-08] MEDS: Ringers Solution, Lactated 1,000 ML IVC SCH ×2 (06:52→06:54)
[2020-07-08 06:59] LABS: Basophils # 0.1 K/mcL (0.0-0.2); Basophils % 0.7 %; Eosinophils # 0.3 K/mcL (0.0-0.6); Eosinophils % 3.3 %; Hematocrit 30.6 % (37.5-50.1); Hemoglobin 9.3 g/dL (12.9-16.9); Immature Granulocytes % 0.4 % (0-4); Lymphocytes # 2.2 K/mcL (0.6-4.6); Lymphocytes % 26.8 %; Mean Corpuscular HGB Conc 30.4 g/dL (31.6-35.5); Mean Corpuscular Hemoglobin 22.3 pg (28.0-33.3); Mean Corpuscular Volume 73.4 fL (83.0-100.0); Mean Platelet Volume 11.9 fL (9.4-12.4); Monocytes # 0.8 K/mcL (0.0-1.3); Monocytes % 9.5 %; Neutrophils # 4.8 K/mcL (1.6-8.9); Platelet Count 351 K/mcL (140-400); Red Blood Count 4.17 M/mcL (4.19-5.50); Red Cell Distribution Width 14.6 % (11.5-14.5); Segmented Neutrophils % 59.3 %; White Blood Count 8.1 K/mcL (4.3-11.1)
[2020-07-08 07:08] LABS: INR 1.6; Prothrombin Time 18.4 Seconds (9.4-12.1)
[2020-07-08 07:19] LABS: Alanine Aminotransferase 10 Units/L (7-52); Albumin 3.4 g/dL (3.5-5.7); Albumin/Globulin Ratio 0.9 (1.1-2.2); Alkaline Phosphatase 60 Units/L (34-104); Aspartate Amino Transferase 9 Units/L (13-39); BUN/Creatinine Ratio 11 (6-26); Bilirubin,Total 0.4 mg/dL (0.3-1.0); Blood Urea Nitrogen 7 mg/dL (6-20); Calcium 8.9 mg/dL (8.6-10.3); Carbon Dioxide 23 mEq/L (23-29); Chloride 105 mEq/L (98-107); Globulin 3.7 g/dL (2.4-3.5); Glucose 95 mg/dL (70-105); Magnesium 1.9 mg/dL (1.6-2.6); Osmolality,Calculated 284 (280-300); Potassium 3.8 mEq/L (3.5-5.1); Sodium 138 mEq/L (136-145); Total Protein 7.1 g/dL (6.4-8.9); eGFR For African Americans > 60 (> 60); eGFR For Non-African Americans > 60 (> 60)
[2020-07-08 09:37] VITALS: BP 111/69
[2020-07-08 12:44] LABS: % Iron Saturation 97 % (20-55); Iron 184 mcg/dL (65-175); Transferrin 135 mg/dL (203-362)
== END 2020-07-08 14:29 | disposition home or self-care (01) ==
LOC: 3ANU 16:18 → EMEROOARM 16:18 → SUATTDRO 22:09 → 3ANU 22:44
PROVIDERS: ADMIT Family Medicine; ATTEND Internal Medicine